=== PATIENT | male | born 1985 | race Two or more races ===

== ENCOUNTER 2020-12-21 16:00 | Inpatient (IN) | payer OTHER, MEDICAID ==
[~2020-12-21] VITALS: Ht 170.2 cm; Wt 44.8 kg
[2020-12-21] MEDS ORDERED: SODIUM CHLORIDE 0.9% 1,000 ML IV ONE ×2 (16:15)
[2020-12-22] MEDS ORDERED: HALOPERIDOL LACTATE 5 MG/ML INJ VIAL IM ONE (10:30)
[2020-12-22] MEDS ORDERED: LORazepam 2MG/ML-1ML VIAL IM ONE (10:30)
[2020-12-22 11:49] LABS: Basophils # (auto) 0 10 ^3/uL (0-0.2); Basophils % (auto) 0.6 % (0.0-2.0); Eosinophils # (auto) 0 10 ^3/uL (0-0.8); Eosinophils % (auto) 0.4 % (0.0-7.0); Hematocrit 32.6 % (41.0-53.0); Hemoglobin 11.2 g/dL (13.5-17.5); Lymphocytes # (auto) 0.4 10 ^3/uL (0.4-5.4); Mean Corpuscular Hemoglobin 27.4 pg (28.0-32.0); Mean Corpuscular Hgb Conc. 34.4 g/dL (32.0-36.0); Mean Corpuscular Volume 79.6 fL (80.0-100.0); Monocytes # (auto) 0.5 10 ^3/uL (0-1.3); Monocytes % (auto) 11.7 % (0.0-12.0); Neutrophils # (auto) 3.5 10 ^3/uL (1.6-8.6); Neutrophils % (auto) 77.3 % (37.0-80.0); Nucleated Red Blood Cells % 0.1 %; Red Blood Cells 4.09 10^6/uL (4.5-5.90); Red Cell Distribution Width 14.8 % (11.8-14.3); White Blood Cell 4.5 10^3/uL (4.4-10.8)
[2020-12-22 12:37] LABS: Albumin 2.8 g/dL (3.4-5.0); BUN/Creatinine Ratio 16.2; Bilirubin, Total 1.3 mg/dL (0.2-1.0); Calcium 7.7 mg/dL (8.5-10.1)
[2020-12-22 12:41] LABS: Potassium 2.6 mmol/L (3.5-5.1)
[2020-12-22] MEDS ORDERED: POTASSIUM CHL 20MEQ/100ML 100 ML IV ONE ×2 (12:45→16:30)
[2020-12-22] MEDS ORDERED: SODIUM CHLORIDE 0.9% 1,000 ML IV ONE ×2 (13:45)
[2020-12-22] MEDS ORDERED: LORazepam 2MG/ML-1ML VIAL ONE (15:01)
[2020-12-22] MEDS ORDERED: LORazepam 2MG/ML-1ML VIAL IV ONE ×2 (15:30→16:00)
[2020-12-22] MEDS: LORazepam 2MG/ML-1ML VIAL IV PRN ×2 (15:34→20:31)
[2020-12-22] MEDS ORDERED: ONDANSETRON HCL 4 MG/2 ML VIAL IV PRN (18:15)
[2020-12-22] MEDS ORDERED: NITROGLYCERIN 0.4 MG SL TAB SL PRN (18:15)
[2020-12-22] MEDS ORDERED: MORPHINE SULF INJ 2 MG/ML SYRINGE 1ML IV PRN ×2 (18:15)
[2020-12-22] MEDS ORDERED: DOCUSATE SOD 100 MG CAP PO PRN (18:15)
[2020-12-22] MEDS ORDERED: ACETAMINOPHEN 500 MG TAB PO PRN (18:15)
[2020-12-22] MEDS ORDERED: HYDROcodone-ACET 5/325MG TAB PO PRN (18:15)
[2020-12-22] MEDS ORDERED: SODIUM CHLORIDE 0.9% 500 ML IV ONE (18:15)
[2020-12-22 19:18] LABS: Urine Bacteria FEW /hpf (None Seen); Urine Blood 2+ /uL (Negative); Urine Mucus FEW (None Seen); Urine Specific Gravity 1.021 (1.001-1.035); Urine WBC 1 /hpf (0 - 3)
[2020-12-22 19:28] LABS: Alcohol, Urine < 3.0 mg/dL (0-10); Amphetamine Screen, Urine NEGATIVE (NEGATIVE); Barbiturate Scree,Urine NEGATIVE (NEGATIVE); Benzodiazephine Screen, Urine NEGATIVE (NEGATIVE); Cannabinoid Screen, Urine NEGATIVE (NEGATIVE); Cocaine Screen, Urine NEGATIVE (NEGATIVE); Opiate Scree,Urine NEGATIVE (NEGATIVE); Phencyclidine Screen, Urine NEGATIVE (NEGATIVE)
[2020-12-22] MEDS: D5W/SOD CHLO 0.9% 1,000 ML IV SCH (20:15)
[2020-12-23] MEDS: LORazepam 2MG/ML-1ML VIAL IV PRN ×6 (01:18→21:01)
[2020-12-23] MEDS: POTASSIUM CHL 20MEQ/100ML 100 ML IV SCH ×2 (03:08→04:59)
[2020-12-23 07:15] LABS: Basophils # (auto) 0 10 ^3/uL (0-0.2); Basophils % (auto) 0.4 % (0.0-2.0); Eosinophils # (auto) 0 10 ^3/uL (0-0.8); Eosinophils % (auto) 0.2 % (0.0-7.0); Hematocrit 30.1 % (41.0-53.0); Hemoglobin 10.5 g/dL (13.5-17.5); Lymphocytes # (auto) 0.4 10 ^3/uL (0.4-5.4); Lymphocytes % (auto) 6.8 % (10.0-50.0); Mean Corpuscular Hemoglobin 27.9 pg (28.0-32.0); Mean Corpuscular Hgb Conc. 34.9 g/dL (32.0-36.0); Monocytes # (auto) 0.5 10 ^3/uL (0-1.3); Monocytes % (auto) 9.4 % (0.0-12.0); Neutrophils # (auto) 4.5 10 ^3/uL (1.6-8.6); Neutrophils % (auto) 83.2 % (37.0-80.0); Nucleated Red Blood Cells % 0.1 %; Red Blood Cells 3.77 10^6/uL (4.5-5.90); Red Cell Distribution Width 14.9 % (11.8-14.3); White Blood Cell 5.4 10^3/uL (4.4-10.8)
[2020-12-23 07:36] LABS: Albumin 2.5 g/dL (3.4-5.0); Magnesium 1.5 mg/dL (1.6-2.6); Potassium 3.7 mmol/L (3.5-5.1)
[2020-12-23] MEDS: D5W/SOD CHLO 0.9% 1,000 ML IV SCH (07:36)
[2020-12-23 07:39] LABS: Bilirubin, Total 1.2 mg/dL (0.2-1.0); Total Protein 5.4 g/dL (6.4-8.2)
[2020-12-23 07:43] LABS: BUN/Creatinine Ratio 4.5
[2020-12-23] MEDS: ENOXAPARIN SOD 40 MG/0.4 ML SYRINGE SC SCH (10:29)
[2020-12-23] MEDS: PANTOPRAZOLE 40 MG/10 ML VIAL INJ IV SCH (10:29)
[2020-12-23] MEDS ORDERED: SODIUM CHLORIDE 0.9% 1,000 ML IV ONE (15:00)
[2020-12-23 18:03] VITALS: BP 92/51
[2020-12-23] MEDS: D5W/ SOD CHL 0.9%/KCL 20MEQ 1,000 ML IV SCH ×2 (18:48→23:20)
[2020-12-23 18:55] LABS: INR 1.44 (0.9-1.15)
[2020-12-23] MEDS: QUEtiapine FUMARATE 25 MG TAB PO SCH (21:30)
[2020-12-23 22:00] VITALS: BP 107/65
[2020-12-24 05:00] VITALS: BP 95/58
[2020-12-24 09:00] VITALS: BP 93/59
[2020-12-24] MEDS: PANTOPRAZOLE 40 MG/10 ML VIAL INJ IV SCH (09:48)
[2020-12-24] MEDS: ENOXAPARIN SOD 40 MG/0.4 ML SYRINGE SC SCH (09:50)
[2020-12-24] MEDS: D5W/ SOD CHL 0.9%/KCL 20MEQ 1,000 ML IV SCH ×3 (12:46→22:07)
[2020-12-24 13:00] VITALS: BP 106/51
[2020-12-24 17:00] VITALS: BP 92/58
[2020-12-24] MEDS: QUEtiapine FUMARATE 25 MG TAB PO SCH (21:30)
[2020-12-24 22:00] VITALS: BP 89/58
[2020-12-25 05:49] VITALS: BP 85/52
[2020-12-25 06:30] VITALS: BP 91/63
[2020-12-25] MEDS: D5W/ SOD CHL 0.9%/KCL 20MEQ 1,000 ML IV SCH ×4 (08:17→22:37)
[2020-12-25] MEDS: ENOXAPARIN SOD 40 MG/0.4 ML SYRINGE SC SCH ×2 (09:50→10:00)
[2020-12-25] MEDS: PANTOPRAZOLE 40 MG/10 ML VIAL INJ IV SCH ×3 (09:50→22:00)
[2020-12-25] MEDS ORDERED: diphenhdrAMINE HCL 50 MG/1 ML VL ONE (11:59)
[2020-12-25] MEDS: MIDAZOLAM HCL 5 MG/ML-1ML VIAL ONE ×2 (12:00→12:04)
[2020-12-25] MEDS: fentaNYL CITRATE 100 MCG/2 ML VL ONE ×2 (12:00→12:04)
[2020-12-25] MEDS ORDERED: LIDOCAINE 2% (LOCAL ANESTH.) PF 5ml SDV ONE (12:36)
[2020-12-25] MEDS ORDERED: PROPOFOL 10 MG/ML 20 ML IV ONE (12:36)
[2020-12-25] MEDS ORDERED: ONDANSETRON HCL 4 MG/2 ML VIAL ONE (12:36)
[2020-12-25] MEDS ORDERED: GLYCOPYRROLATE 0.2 MG/ML 1ML VIAL ONE (12:36)
[2020-12-25] MEDS ORDERED: fentaNYL CITRATE 100 MCG/2 ML VL ONE (12:36)
[2020-12-25] MEDS ORDERED: ceFAZolin 1GM/50ML 50 ML IV ONE (12:37)
[2020-12-25 13:00] VITALS: BP 98/58
[2020-12-25] MEDS ORDERED: ONDANSETRON HCL 4 MG/2 ML VIAL IV PRN (13:30)
[2020-12-25] MEDS ORDERED: HYDROmorphone HCL 2 MG/ML VL IV PRN (13:30)
[2020-12-25] MEDS ORDERED: ACCU-CHEK COMFORT CURVE STRIP VI ONE (13:30)
[2020-12-25 17:00] VITALS: BP 102/61
[2020-12-25 22:00] VITALS: BP 98/60
[2020-12-25] MEDS: QUEtiapine FUMARATE 25 MG TAB PO SCH (22:00)
[2020-12-26 05:00] VITALS: BP 107/76
[2020-12-26] MEDS: D5W/ SOD CHL 0.9%/KCL 20MEQ 1,000 ML IV SCH ×2 (08:00→18:42)
[2020-12-26 09:00] VITALS: BP 98/62
[2020-12-26] MEDS: LORazepam 2MG/ML-1ML VIAL IV PRN (09:06)
[2020-12-26] MEDS: ENOXAPARIN SOD 40 MG/0.4 ML SYRINGE SC SCH (10:00)
[2020-12-26] MEDS: PANTOPRAZOLE 40 MG/10 ML VIAL INJ IV SCH ×2 (10:08→22:00)
[2020-12-26 13:00] VITALS: BP 96/58
[2020-12-26] MEDS: METOCLOPRAMIDE HCL 5MG/ml INJ 2ml VIAL IV SCH ×2 (13:25→22:00)
[2020-12-26 17:00] VITALS: BP 92/55
[2020-12-26] MEDS: NYSTATIN (MOUTH-THROAT) 500,000 UNITS/5 ML SUSP MT SCH ×2 (18:43→22:00)
[2020-12-26] MEDS ORDERED: Jevity 1.2 Cal/Fiber 1 Liter GT SCH (19:00)
[2020-12-26 19:05] LABS: Basophils # (auto) 0.1 10 ^3/uL (0-0.2); Basophils % (auto) 1.7 % (0.0-2.0); Eosinophils # (auto) 0 10 ^3/uL (0-0.8); Eosinophils % (auto) 0.6 % (0.0-7.0); Lymphocytes # (auto) 0.8 10 ^3/uL (0.4-5.4); Lymphocytes % (auto) 9.2 % (10.0-50.0); Mean Corpuscular Hemoglobin 27.1 pg (28.0-32.0); Mean Corpuscular Hgb Conc. 33.3 g/dL (32.0-36.0); Mean Corpuscular Volume 81.5 fL (80.0-100.0); Monocytes # (auto) 0.6 10 ^3/uL (0-1.3); Monocytes % (auto) 7.3 % (0.0-12.0); Neutrophils # (auto) 6.7 10 ^3/uL (1.6-8.6); Neutrophils % (auto) 81.2 % (37.0-80.0); Red Blood Cells 4.41 10^6/uL (4.5-5.90); Red Cell Distribution Width 15.2 % (11.8-14.3); White Blood Cell 8.2 10^3/uL (4.4-10.8)
[2020-12-26] MEDS: Jevity 1.2 Cal/Fiber 1 Liter GT SCH (19:15)
[2020-12-26 19:24] LABS: Albumin 2.7 g/dL (3.4-5.0); Calcium 7.3 mg/dL (8.5-10.1); Potassium 3.7 mmol/L (3.5-5.1)
[2020-12-26 19:27] LABS: BUN/Creatinine Ratio 3.2; Bilirubin, Total 1.2 mg/dL (0.2-1.0); Total Protein 6.1 g/dL (6.4-8.2)
[2020-12-26] MEDS ORDERED: HALOPERIDOL LACTATE 5 MG/ML INJ VIAL IM PRN (21:00)
[2020-12-26] MEDS: QUEtiapine FUMARATE 25 MG TAB PO SCH (22:00)
[2020-12-26 22:12] VITALS: BP 92/61
[2020-12-27] MEDS: Jevity 1.2 Cal/Fiber 1 Liter GT SCH ×6 (00:03→21:21)
[2020-12-27 05:16] VITALS: BP 88/54
[2020-12-27] MEDS: METOCLOPRAMIDE HCL 5MG/ml INJ 2ml VIAL IV SCH ×3 (06:00→21:23)
[2020-12-27] MEDS: NYSTATIN (MOUTH-THROAT) 500,000 UNITS/5 ML SUSP MT SCH ×4 (06:00→21:23)
[2020-12-27 09:00] VITALS: BP 99/62
[2020-12-27] MEDS: PANTOPRAZOLE 40 MG/10 ML VIAL INJ IV SCH ×2 (10:00→21:22)
[2020-12-27] MEDS: ENOXAPARIN SOD 40 MG/0.4 ML SYRINGE SC SCH (10:00)
[2020-12-27] MEDS: D5W/ SOD CHL 0.9%/KCL 20MEQ 1,000 ML IV SCH ×2 (10:40→19:00)
[2020-12-27 16:54] VITALS: BP 87/49
[2020-12-27] MEDS: QUEtiapine FUMARATE 25 MG TAB PO SCH (21:23)
[2020-12-27 22:00] VITALS: BP 92/56
[2020-12-28] MEDS: D5W/ SOD CHL 0.9%/KCL 20MEQ 1,000 ML IV SCH ×2 (03:20→11:15)
[2020-12-28 05:00] VITALS: BP 102/68
[2020-12-28] MEDS: METOCLOPRAMIDE HCL 5MG/ml INJ 2ml VIAL IV SCH (06:00)
[2020-12-28] MEDS: Jevity 1.2 Cal/Fiber 1 Liter GT SCH ×5 (06:00→20:00)
[2020-12-28] MEDS: NYSTATIN (MOUTH-THROAT) 500,000 UNITS/5 ML SUSP MT SCH ×4 (06:00→22:00)
[2020-12-28 09:00] VITALS: BP 94/60
[2020-12-28] MEDS: PANTOPRAZOLE 40 MG/10 ML VIAL INJ IV SCH (10:00)
[2020-12-28] MEDS: ENOXAPARIN SOD 40 MG/0.4 ML SYRINGE SC SCH (10:00)
[2020-12-28 13:00] VITALS: BP 91/61
[2020-12-28 14:33] LABS: Free T4 (Free Thyroxine) 0.95 ng/dL (0.89-1.76)
[2020-12-28 14:34] LABS: Folate (Folic Acid) 3.67 ng/mL (5.38-24)
[2020-12-28 17:00] VITALS: BP 100/68
[2020-12-28] MEDS: CALCIUM W/VIT D (600MG/400IU) TAB PO SCH (18:00)
[2020-12-28 20:21] VITALS: BP 117/68
[2020-12-28] MEDS: MEGESTROL ACET 400MG/10ML ORAL SUSP PO SCH (22:00)
[2020-12-28] MEDS: QUEtiapine FUMARATE 25 MG TAB PO SCH (22:00)
[2020-12-29 05:22] VITALS: BP 104/67
[2020-12-29] MEDS: NYSTATIN (MOUTH-THROAT) 500,000 UNITS/5 ML SUSP MT SCH ×4 (06:00→20:35)
[2020-12-29] MEDS: Jevity 1.2 Cal/Fiber 1 Liter GT SCH ×5 (06:39→20:00)
[2020-12-29] MEDS: CALCIUM W/VIT D (600MG/400IU) TAB PO SCH ×2 (08:00→18:00)
[2020-12-29 09:00] VITALS: BP 100/62
[2020-12-29] MEDS: ENOXAPARIN SOD 40 MG/0.4 ML SYRINGE SC SCH (09:31)
[2020-12-29] MEDS: MEGESTROL ACET 400MG/10ML ORAL SUSP PO SCH ×2 (09:31→20:35)
[2020-12-29] MEDS ORDERED: CYANOCOBALAMIN (B-12) 1000 MCG/1 ML VIAL IM SCH (10:00)
[2020-12-29 13:00] VITALS: BP 96/61
[2020-12-29] MEDS: QUEtiapine FUMARATE 25 MG TAB PO SCH (20:34)
[2020-12-29 22:00] VITALS: BP 123/78
[2020-12-30 05:00] VITALS: BP 100/61
[2020-12-30] MEDS: NYSTATIN (MOUTH-THROAT) 500,000 UNITS/5 ML SUSP MT SCH ×4 (05:17→21:37)
[2020-12-30] MEDS: Jevity 1.2 Cal/Fiber 1 Liter GT SCH ×5 (05:17→20:00)
[2020-12-30] MEDS: CALCIUM W/VIT D (600MG/400IU) TAB PO SCH ×2 (08:00→18:00)
[2020-12-30 09:00] VITALS: BP 101/60
[2020-12-30] MEDS: MEGESTROL ACET 400MG/10ML ORAL SUSP PO SCH ×2 (09:46→21:37)
[2020-12-30] MEDS: ENOXAPARIN SOD 40 MG/0.4 ML SYRINGE SC SCH (09:46)
[2020-12-30] MEDS: B-COMPLEX W/ C & FOLIC ACID(NEPHROVITE TAB) PO SCH (09:46)
[2020-12-30 13:00] VITALS: BP 104/64
[2020-12-30 17:00] VITALS: BP 105/73
[2020-12-30] MEDS: QUEtiapine FUMARATE 25 MG TAB PO SCH (21:37)
[2020-12-30 22:00] VITALS: BP 100/71
[2020-12-31 05:00] VITALS: BP 113/69
[2020-12-31] MEDS: Jevity 1.2 Cal/Fiber 1 Liter GT SCH ×5 (05:37→19:55)
[2020-12-31] MEDS: NYSTATIN (MOUTH-THROAT) 500,000 UNITS/5 ML SUSP MT SCH ×5 (06:00→22:00)
[2020-12-31] MEDS: CALCIUM W/VIT D (600MG/400IU) TAB PO SCH ×3 (08:00→18:36)
[2020-12-31 09:00] VITALS: BP 109/70
[2020-12-31] MEDS: MEGESTROL ACET 400MG/10ML ORAL SUSP PO SCH ×2 (10:00→22:00)
[2020-12-31] MEDS: B-COMPLEX W/ C & FOLIC ACID(NEPHROVITE TAB) PO SCH (10:00)
[2020-12-31] MEDS: ENOXAPARIN SOD 40 MG/0.4 ML SYRINGE SC SCH (10:00)
[2020-12-31 17:00] VITALS: BP 126/76
[2020-12-31 22:00] VITALS: BP 133/78
[2020-12-31] MEDS: QUEtiapine FUMARATE 25 MG TAB PO SCH (22:00)
[2021-01-01 05:07] VITALS: BP 107/65
[2021-01-01] MEDS: NYSTATIN (MOUTH-THROAT) 500,000 UNITS/5 ML SUSP MT SCH ×4 (06:00→22:00)
[2021-01-01] MEDS: Jevity 1.2 Cal/Fiber 1 Liter GT SCH ×5 (06:00→20:00)
[2021-01-01] MEDS: CALCIUM W/VIT D (600MG/400IU) TAB PO SCH ×2 (08:00→18:00)
[2021-01-01 08:54] VITALS: BP 109/82
[2021-01-01] MEDS: ENOXAPARIN SOD 40 MG/0.4 ML SYRINGE SC SCH (10:00)
[2021-01-01] MEDS: MEGESTROL ACET 400MG/10ML ORAL SUSP PO SCH (10:00)
[2021-01-01] MEDS: B-COMPLEX W/ C & FOLIC ACID(NEPHROVITE TAB) PO SCH (10:00)
[2021-01-01 12:37] VITALS: BP 118/79
[2021-01-01] MEDS: LORazepam 2MG/ML-1ML VIAL IV PRN (15:14)
[2021-01-01 17:04] VITALS: BP 92/50
[2021-01-01] MEDS ORDERED: LORazepam 2MG/ML-1ML VIAL IV PRN ×2 (19:30→20:00)
[2021-01-01] MEDS ORDERED: LORazepam MDV 2MG/ML 50 MG in SODIUM CHL 0.9% 25 ML IV SCH (19:30)
[2021-01-01 22:00] VITALS: BP 97/57
[2021-01-01] MEDS: MEGESTROL ACET 400MG/10ML ORAL SUSP PEG SCH (22:00)
[2021-01-01] MEDS: QUEtiapine FUMARATE 25 MG TAB PEG SCH (22:00)
[2021-01-02 05:00] VITALS: BP 90/50
[2021-01-02] MEDS: Jevity 1.2 Cal/Fiber 1 Liter GT SCH ×5 (05:22→20:00)
[2021-01-02] MEDS: NYSTATIN (MOUTH-THROAT) 500,000 UNITS/5 ML SUSP MT SCH ×4 (05:22→22:00)
[2021-01-02] MEDS: CALCIUM W/VIT D (600MG/400IU) TAB PEG SCH ×2 (08:00→18:00)
[2021-01-02 09:00] VITALS: BP 115/68
[2021-01-02] MEDS: ENOXAPARIN SOD 40 MG/0.4 ML SYRINGE SC SCH (10:00)
[2021-01-02] MEDS ORDERED: SODIUM CHLORIDE 0.9% 500 ML IV ONE (10:00)
[2021-01-02] MEDS: B-COMPLEX W/ C & FOLIC ACID(NEPHROVITE TAB) PO SCH (11:20)
[2021-01-02] MEDS: MEGESTROL ACET 400MG/10ML ORAL SUSP PEG SCH ×2 (11:20→22:00)
[2021-01-02 13:00] VITALS: BP 97/55
[2021-01-02 17:00] VITALS: BP 95/50
[2021-01-02 22:00] VITALS: BP 108/57
[2021-01-02] MEDS: QUEtiapine FUMARATE 25 MG TAB PEG SCH (22:00)
[2021-01-03] MEDS: NYSTATIN (MOUTH-THROAT) 500,000 UNITS/5 ML SUSP MT SCH ×4 (06:00→22:00)
[2021-01-03] MEDS: Jevity 1.2 Cal/Fiber 1 Liter GT SCH ×5 (06:00→23:13)
[2021-01-03] MEDS: CALCIUM W/VIT D (600MG/400IU) TAB PEG SCH ×2 (08:00→17:42)
[2021-01-03 08:57] VITALS: BP 98/58
[2021-01-03] MEDS: MEGESTROL ACET 400MG/10ML ORAL SUSP PEG SCH ×2 (10:00→23:14)
[2021-01-03] MEDS: ENOXAPARIN SOD 40 MG/0.4 ML SYRINGE SC SCH (10:00)
[2021-01-03] MEDS: B-COMPLEX W/ C & FOLIC ACID(NEPHROVITE TAB) PO SCH (10:00)
[2021-01-03 13:00] VITALS: BP 93/59
[2021-01-03 17:00] VITALS: BP 85/51
[2021-01-03 22:00] VITALS: BP 103/62
[2021-01-03] MEDS: QUEtiapine FUMARATE 25 MG TAB PEG SCH (23:14)
[2021-01-04] MEDS: LORazepam 2MG/ML-1ML VIAL IV PRN ×3 (03:08→22:13)
[2021-01-04 04:00] VITALS: BP 101/57
[2021-01-04] MEDS: Jevity 1.2 Cal/Fiber 1 Liter GT SCH ×5 (05:48→20:00)
[2021-01-04] MEDS: NYSTATIN (MOUTH-THROAT) 500,000 UNITS/5 ML SUSP MT SCH ×4 (05:49→22:00)
[2021-01-04] MEDS: CALCIUM W/VIT D (600MG/400IU) TAB PEG SCH ×2 (08:00→18:00)
[2021-01-04] MEDS: MEGESTROL ACET 400MG/10ML ORAL SUSP PEG SCH ×2 (10:00→22:00)
[2021-01-04] MEDS: ENOXAPARIN SOD 40 MG/0.4 ML SYRINGE SC SCH (10:00)
[2021-01-04] MEDS: B-COMPLEX W/ C & FOLIC ACID(NEPHROVITE TAB) PO SCH (10:00)
[2021-01-04 10:12] VITALS: BP 110/65
[2021-01-04 17:00] VITALS: BP 100/56
[2021-01-04 22:00] VITALS: BP 119/73
[2021-01-04] MEDS: QUEtiapine FUMARATE 25 MG TAB PEG SCH (22:00)
[2021-01-05 05:02] VITALS: BP 109/67
[2021-01-05] MEDS: Jevity 1.2 Cal/Fiber 1 Liter GT SCH ×5 (06:00→20:00)
[2021-01-05] MEDS: NYSTATIN (MOUTH-THROAT) 500,000 UNITS/5 ML SUSP MT SCH ×4 (06:00→22:00)
[2021-01-05] MEDS: CALCIUM W/VIT D (600MG/400IU) TAB PEG SCH ×2 (08:00→17:52)
[2021-01-05 09:00] VITALS: BP 103/66
[2021-01-05] MEDS: B-COMPLEX W/ C & FOLIC ACID(NEPHROVITE TAB) PO SCH (10:00)
[2021-01-05] MEDS: ENOXAPARIN SOD 40 MG/0.4 ML SYRINGE SC SCH (10:00)
[2021-01-05] MEDS: MEGESTROL ACET 400MG/10ML ORAL SUSP PEG SCH ×2 (10:00→22:00)
[2021-01-05 13:00] VITALS: BP 95/54
[2021-01-05 17:00] VITALS: BP 100/58
[2021-01-05 21:11] VITALS: BP 110/69
[2021-01-05] MEDS: QUEtiapine FUMARATE 25 MG TAB PEG SCH (22:00)
[2021-01-06 03:08] VITALS: BP 111/65
[2021-01-06] MEDS: NYSTATIN (MOUTH-THROAT) 500,000 UNITS/5 ML SUSP MT SCH ×3 (06:00→22:00)
[2021-01-06] MEDS: Jevity 1.2 Cal/Fiber 1 Liter GT SCH ×3 (06:00→20:00)
[2021-01-06] MEDS: CALCIUM W/VIT D (600MG/400IU) TAB PEG SCH (08:00)
[2021-01-06] MEDS: ENOXAPARIN SOD 40 MG/0.4 ML SYRINGE SC SCH (10:00)
[2021-01-06] MEDS: B-COMPLEX W/ C & FOLIC ACID(NEPHROVITE TAB) PO SCH (10:00)
[2021-01-06] MEDS: MEGESTROL ACET 400MG/10ML ORAL SUSP PEG SCH ×2 (10:00→22:00)
[2021-01-06] MEDS: QUEtiapine FUMARATE 25 MG TAB PEG SCH (22:00)
[2021-01-07] MEDS: Jevity 1.2 Cal/Fiber 1 Liter GT SCH ×2 (06:00→20:00)
[2021-01-07] MEDS: NYSTATIN (MOUTH-THROAT) 500,000 UNITS/5 ML SUSP MT SCH ×2 (06:00→22:00)
[2021-01-07] MEDS: B-COMPLEX W/ C & FOLIC ACID(NEPHROVITE TAB) PO SCH (10:00)
[2021-01-07] MEDS: MEGESTROL ACET 400MG/10ML ORAL SUSP PEG SCH ×2 (10:00→22:00)
[2021-01-07] MEDS: ENOXAPARIN SOD 40 MG/0.4 ML SYRINGE SC SCH (10:00)
[2021-01-07] MEDS: QUEtiapine FUMARATE 25 MG TAB PEG SCH (22:00)
[2021-01-08] MEDS: Jevity 1.2 Cal/Fiber 1 Liter GT SCH ×5 (06:00→20:00)
[2021-01-08] MEDS: NYSTATIN (MOUTH-THROAT) 500,000 UNITS/5 ML SUSP MT SCH ×4 (06:00→22:00)
[2021-01-08 09:00] VITALS: BP 91/64
[2021-01-08] MEDS: MEGESTROL ACET 400MG/10ML ORAL SUSP PEG SCH ×2 (10:17→22:00)
[2021-01-08] MEDS: B-COMPLEX W/ C & FOLIC ACID(NEPHROVITE TAB) PO SCH (10:17)
[2021-01-08] MEDS: ENOXAPARIN SOD 40 MG/0.4 ML SYRINGE SC SCH (10:38)
[2021-01-08 13:00] VITALS: BP 96/62
[2021-01-08] MEDS: QUEtiapine FUMARATE 25 MG TAB PEG SCH (22:00)
[2021-01-08 22:17] VITALS: BP 96/58
[2021-01-09] MEDS: NYSTATIN (MOUTH-THROAT) 500,000 UNITS/5 ML SUSP MT SCH (06:00)
[2021-01-09] MEDS: Jevity 1.2 Cal/Fiber 1 Liter GT SCH ×5 (06:00→20:00)
[2021-01-09 09:00] VITALS: BP 90/52
[2021-01-09] MEDS: MEGESTROL ACET 400MG/10ML ORAL SUSP PEG SCH (10:15)
[2021-01-09] MEDS: B-COMPLEX W/ C & FOLIC ACID(NEPHROVITE TAB) PO SCH (10:16)
[2021-01-09 17:00] VITALS: BP 85/57
[2021-01-09] MEDS: QUEtiapine FUMARATE 25 MG TAB PEG SCH (21:48)
[2021-01-09 22:02] VITALS: BP_SYST 85; BP_SYST 88; BP_DIAS 46; BP_DIAS 51
[2021-01-10] MEDS: Jevity 1.2 Cal/Fiber 1 Liter GT SCH ×5 (06:00→21:52)
[2021-01-10] MEDS: B-COMPLEX W/ C & FOLIC ACID(NEPHROVITE TAB) PO SCH (09:39)
[2021-01-10] MEDS: MEGESTROL ACET 400MG/10ML ORAL SUSP PEG SCH (09:39)
[2021-01-10 16:53] VITALS: BP 101/57
[2021-01-10] MEDS ORDERED: LORazepam 2MG/ML-1ML VIAL IV PRN (18:45)
[2021-01-10] MEDS: QUEtiapine FUMARATE 25 MG TAB PEG SCH (21:38)
[2021-01-10 22:00] VITALS: BP 87/54
[2021-01-11 04:00] VITALS: BP 83/41
[2021-01-11 05:49] VITALS: BP 104/47
[2021-01-11] MEDS: Jevity 1.2 Cal/Fiber 1 Liter GT SCH ×5 (05:54→20:00)
[2021-01-11] MEDS: CALCIUM W/VIT D (600MG/400IU) TAB PEG SCH ×3 (08:00→18:00)
[2021-01-11] MEDS ORDERED: Ensure Enlive Chocolate 8oz Bottle PO ONE (08:45)
[2021-01-11 09:06] VITALS: BP 100/59
[2021-01-11] MEDS: B-COMPLEX W/ C & FOLIC ACID(NEPHROVITE TAB) PO SCH (10:00)
[2021-01-11] MEDS: MEGESTROL ACET 400MG/10ML ORAL SUSP PEG SCH (10:57)
[2021-01-11 13:00] VITALS: BP 89/50
[2021-01-11] MEDS ORDERED: NUTR-1080 GT (14:04)
[2021-01-11] MEDS ORDERED: CALC600T80 PEG (14:04)
[2021-01-11] MEDS ORDERED: QUET25TA46 PEG (14:04)
[2021-01-11 17:00] VITALS: BP 100/65
[2021-01-11] MEDS: Ensure Enlive Strawberry 8oz Bottle PO SCH (18:00)
[2021-01-11] MEDS: QUEtiapine FUMARATE 25 MG TAB PEG SCH (21:36)
[2021-01-12 05:00] VITALS: BP 112/64
[2021-01-12] MEDS: Jevity 1.2 Cal/Fiber 1 Liter GT SCH ×3 (06:00→15:43)
[2021-01-12] MEDS: Ensure Enlive Strawberry 8oz Bottle PO SCH ×2 (08:00→12:00)
[2021-01-12] MEDS: CALCIUM W/VIT D (600MG/400IU) TAB PEG SCH (10:28)
[2021-01-12] MEDS: B-COMPLEX W/ C & FOLIC ACID(NEPHROVITE TAB) PO SCH (10:29)
[2021-01-12] MEDS: MEGESTROL ACET 400MG/10ML ORAL SUSP PEG SCH (10:29)
== END 2021-01-12 16:20 | disposition home health service (06) | DRG 70 ==
LOC: EDBD 16:00 → ER 16:00 → TELE 12-22 18:05 → TELE-WESTW 12-23 17:14 → WEST WING 01-10 17:27
PROVIDERS: ADMIT Nurse Practitioner Acute Care; ATTEND Hospitalist
PROC: 0DH63UZ Insertion of Feeding Device into Stomach, Percutaneous Approach (ICD-10-PCS; principal; 2020-12-25 11:55)
PROC: 3E0G76Z Introduction of Nutritional Substance into Upper GI, Via Natural or Artificial Opening (ICD-10-PCS; 2020-12-26)
DX: G93.41 Metabolic encephalopathy (principal); E43 Unspecified severe protein-calorie malnutrition; F50.00 Anorexia nervosa, unspecified; Z68.1 Body mass index [BMI] 19.9 or less, adult; F84.0 Autistic disorder; E87.1 Hypo-osmolality and hyponatremia; E87.6 Hypokalemia; Z20.822 Contact with and (suspected) exposure to COVID-19; R62.7 Adult failure to thrive; D64.9 Anemia, unspecified; K29.70 Gastritis, unspecified, without bleeding; R56.9 Unspecified convulsions; F60.0 Paranoid personality disorder; Z86.59 Personal history of other mental and behavioral disorders; Z79.899 Other long term (current) drug therapy; F29 Unspecified psychosis not due to a substance or known physiological condition
CPT/HCPCS: 36415; 70450; 71045; 80053; 80307; 80320; 81001; 82607; 82746; 82962; 83735; 84132; 84439; 84443; 85025; 85610; 86850; 86900; 86901; 87426; 96365; 96366; 96372; 96375; 97110; 97116; 97163; 97530; C9113; G0378; J0690; J2001; J2250; J2405; J2704; J3480; J7042